=== PATIENT | female | born 1960 | race African-American/Black ===

== ENCOUNTER 2024-07-12 15:00 | Outpatient (RCR) | payer OTHER, SELFPAY ==
--- NOTE | 2024-04-20 12:25 | OPREHPOC ---
Outpatient Therapy Plan of Care This is a Multidisciplinary Plan of Care that may contain components documented by all disciplines (PT, OT, and ST.) PT Problem 1 PT Problem #1 Knowledge Deficit PT Goal 1 Goal / Goal Update 1. Patient will perform independent HEP Target Visit 3 PT Problem 2 PT Problem #2 Pain PT Goal 1 Goal / Goal Update 1. Patient will report no pelvic pain Target Visit 5 PT Problem 3 PT Problem #3 Impaired Functional ADLs PT Goal 1 Goal / Goal Update 1. Patient will report incontinence no more than 1 time a week Target Visit 5
--- NOTE | 2024-04-20 12:26 | PTOPEVAL1 ---
Assessment and note entered by Rosy Gregorio DPT Evaluation Information Assessment Status Evaluation Diagnosis m62.89 ICD-10 Condition Codes (PT) Urge incontinence N39.41,Stress incontinence N39.3 Subjective Information States she sometimes feels pins in her right labia and pubic bone. Pain depends on what position she is in, also describes a pulling sensation in her abdomen. Highest 6/10. At one time fell and landed on a chair in a way that seemed to contribute to her symptoms. Voids 8-10 times a day and none at night. Can hold urge 5-15 minutes, sometimes less depending on the situation . Reports incontinence daily and uses towels instead of a pad. Sometimes incontinence will be the full amount of her bladder, but states it is not consistent. Denies pain with urination. BM at least most days of the week, sometimes more often. Feels a sense of fecal urgency. Denies history of pelvic pain. Pt has been 3 times, delivered 1 time via C- section. Diet: drinks mainly water, 8 ounces of tea with dinner. Tries to be sure to eat green leafy vegetables, often skips breakfast. Small snacks. Minimal dairy. Patient goal: see what is going on with my muscles , reduce incontinence History of breast cancer x 2. Attributes some of her current issues to the cancer treatments. Ectopic and surgery 25 years ago. Reported Pain Level Pain Score 0: Self Report Assessment PT Clinical Summary The patient is presenting to skilled therapy with a history of pelvic pain and significant urinary incontinence. She presents with decreased core strength. Pelvic floor assessment to be completed next visit due to time constraints and patient request. She will benefit from therapy to address her muscular impairments in order to reduce pain and incontinence and improve overall function. Plan of Care Interventions Electrical Stimulation,Hot Pack/Cold Pack,Manual Therapy,Neuro Re-education,Patient/Caregiver Education,Therapeutic Activities,Therapeutic Exercise PT Services Indicated Yes Treatment Frequency and 1 time a week for 5 visits Duration These treatments will address the objective and functional deficits as defined above. The patient will be advanced safely and appropriately in order for the patient to progress towards his/her prior level of function. Additional exercises will be introduced and as well as a comprehensive home exercise program upon discharge, if needed, ?to ensure carryover of functional gains achieved in the clinic. This treatment plan has been reviewed and agreement upon by the patient.
--- NOTE | 2024-04-24 11:49 | PCPTNOTE ---
Patient called to cancel 04/24/24 due to car trouble. Plans to call to r/s.
--- NOTE | 2024-05-25 10:42 | OPREHPOC ---
Outpatient Therapy Plan of Care This is a Multidisciplinary Plan of Care that may contain components documented by all disciplines (PT, OT, and ST.) PT Problem 1 PT Problem #1 Knowledge Deficit PT Goal 1 Goal / Goal Update 1. Patient will perform independent HEP Target Visit 3 Progress Met PT Problem 2 PT Problem #2 Pain PT Goal 1 Goal / Goal Update 1. Patient will report no pelvic pain update 05/25/24 1. 4/10 highest Target Visit 9 Progress Partially Met PT Problem 3 PT Problem #3 Impaired Functional ADLs PT Goal 1 Goal / Goal Update 1. Patient will report incontinence no more than 1 time a week update 05/25/24 1. daily but less often/less volume Target Visit 5 Progress Partially Met
--- NOTE | 2024-05-25 10:42 | PTOPPROG ---
Assessment and note entered by Rosy Gregorio DPT Evaluation Information Assessment Status Progress Diagnosis m62.89 ICD-10 Condition Codes (PT) Urge incontinence N39.41,Stress incontinence N39.3 Subjective Information Pt reports she feels overall better since starting therapy. Volume of incontinence has decreased and is more manageable. Can hold urge to void up to 10-15 minutes on the high end, sometimes less. Using smaller towels and less of them (uses in place of pads). Highest pain over the last week 10. Feels she will benefit from continuing therapy . Assessment PT Clinical Summary The patient has made good progress in therapy. She reports decreased pain overall to 4/10 highest and reports decreased volume and frequency of incontinence. She demonstrates improved hip and core strength as well as improved pelvic floor strength and endurance. Due to her progress but continued pain and incontinence she will benefit from further therapy to return to full function. Plan of Care Interventions Electrical Stimulation,Hot Pack/Cold Pack,Manual Therapy,Neuro Re-education,Patient/Caregiver Education,Therapeutic Activities,Therapeutic Exercise PT Services Indicated Yes Treatment Frequency and 1 time a week for 4 visits Duration These treatments will address the objective and functional deficits as defined above. The patient will be advanced safely and appropriately in order for the patient to progress towards his/her prior level of function. Additional exercises will be introduced and as well as a comprehensive home exercise program upon discharge, if needed, ?to ensure carryover of functional gains achieved in the clinic. This treatment plan has been reviewed and agreement upon by the patient.
--- NOTE | 2024-06-22 09:07 | PCPTNOTE ---
Patient cancelled appointment 06/21/24 due to conflicting appointment
--- NOTE | 2024-07-12 15:40 | OPREHPOC ---
Outpatient Therapy Plan of Care This is a Multidisciplinary Plan of Care that may contain components documented by all disciplines (PT, OT, and ST.) PT Problem 1 PT Problem #1 Knowledge Deficit PT Goal 1 Goal / Goal Update 1. Patient will perform independent HEP Target Visit 3 Progress Met PT Problem 2 PT Problem #2 Pain PT Goal 1 Goal / Goal Update 1. Patient will report no pelvic pain update 05/25/24 1. 4/10 highest update 07/12/24 1. 1/10 highest Target Visit 9 Progress Partially Met PT Problem 3 PT Problem #3 Impaired Functional ADLs PT Goal 1 Goal / Goal Update 1. Patient will report incontinence no more than 1 time a week update 05/25/24 1. daily but less often/less volume update 07/12/24 1. 2 times per week Target Visit 9 Progress Partially Met
--- NOTE | 2024-07-12 15:40 | PTOPDC ---
Assessment and note entered by Rosy Gregorio DPT Evaluation Information Assessment Status Discharge Diagnosis m62.89 ICD-10 Condition Codes (PT) Urge incontinence N39.41,Stress incontinence N39.3 Subjective Information Reports her anterior pain has joined with the black hole pain in her back which is a good thing . States she is no longer fearful of walking around the house without a towel for incontinence . Still will get incontinence if she waits too long to void and is not holding as long as she was at last re-evaluation. Trying to work on urge suppression strategies. Incontinence two times in the last week. Highest pain over the last week . Reported Pain Level Pain Score 0: Self Report Assessment PT Clinical Summary The patient has continued to make progress in therapy and reports greatly decreased pain overall and decreased frequency of incontinence to 2 times in the last week. She demonstrates the same muscle strength as last re-evaluation. Due to this , plan for discharge at this time. She has been educated to continue HEP independently and to follow up with MD and/or PT as needed. Plan of Care PT Services Indicated No
== END 2024-07-13 10:45 | disposition home or self-care (01) ==
LOC: ANHPT 15:00
PROVIDERS: PCP Internal Medicine; Visit Provider Urology
DX: M62.89 Other specified disorders of muscle (principal)
CPT/HCPCS: 97112; 97140; 97162; 97530

== ENCOUNTER 2025-03-01 14:45 | Outpatient (RCR) | payer MEDICARE, SELFPAY ==
--- NOTE | 2025-02-22 13:51 | OPREHPOC ---
Outpatient Therapy Plan of Care This is a Multidisciplinary Plan of Care that may contain components documented by all disciplines (PT, OT, and ST.) PT Problem 1 PT Problem #1 Knowledge Deficit PT Goal 1 Goal / Goal Update 1. Patient will perform independent HEP 2. Patient will verbalize urge suppression strategies Target Visit 2 PT Problem 2 PT Problem #2 Impaired Strength PT Goal 1 Goal / Goal Update 1. Patient will demonstrate 4/5 pelvic floor strength to reduce incontinence 2. Patient will demonstrate 10 second pelvic floor endurance to reduce incontinence Target Visit 3 PT Problem 3 PT Problem #3 Impaired Functional ADLs PT Goal 1 Goal / Goal Update 1. Patient able to hold urge to void at least 15 minutes 2. Patient will report incontinence no more than 1 time a week Target Visit 3
--- NOTE | 2025-02-22 13:51 | PTOPEVAL1 ---
Assessment and note entered by Rosy Gregorio DPT Evaluation Information Assessment Status Evaluation ICD-10 Condition Codes (PT) Weakness R53.1,Urge incontinence N39.41,Stress incontinence N39.3 Subjective Information Pt reports she is getting incontinence frequently throughout the day. Voiding 7 times a day and incontinence another 7 times a day. Just started taking something for OAB and states her dosage is going to be increased. States she is wearing adult diapers again. No pain with urination. Reports a lot of urgency and can only hold for a minute or two. BM most days or every other day. Denies pelvic pain. Pt has been 2 times, 1 delivery which was . No history of b/b issues or other [employer] issues. Patient goal: get some exercises for the meantime. Pt states she is starting a new job after next week and will be unable to come to appointments for awhile. Reported Pain Level Pain Score 0: Self Report Assessment PT Clinical Summary The patient is presenting to skilled therapy with a history of mixed urinary incontinence and urinary urgency. She presents with decreased pelvic floor strength and endurance as well as decreased overall hip and abdominal strength which are contributing to her incontinence. She also demonstrates need for education in urge suppression strategies. She will benefit from skilled therapy to address her impairments in order to reduce urgency and incontinence and restore full function. Plan of Care Interventions Manual Therapy,Neuro Re-education,Patient/ Caregiver Education,Therapeutic Activities, Therapeutic Exercise PT Services Indicated Yes Treatment Frequency and 1 time a week for 2-3 visits Duration These treatments will address the objective and functional deficits as defined above. The patient will be advanced safely and appropriately in order for the patient to progress towards his/her prior level of function. Additional exercises will be introduced and as well as a comprehensive home exercise program upon discharge, if needed, ?to ensure carryover of functional gains achieved in the clinic. This treatment plan has been reviewed and agreement upon by the patient.
--- NOTE | 2025-05-07 14:52 | PTOPDC ---
Assessment and note entered by Rosy Gregorio DPT Evaluation Information Assessment Status Discharge - Pt Not Present ICD-10 Condition Codes (PT) Weakness R53.1,Urge incontinence N39.41,Stress incontinence N39.3 Subjective Information - Assessment PT Clinical Summary Patient case has been discharged due to her work schedule. Plan of Care PT Services Indicated No
== END 2025-05-08 09:25 | disposition home or self-care (01) ==
LOC: ANHPT 14:45
PROVIDERS: PCP Internal Medicine; Visit Provider Urology
DX: N39.41 Urge incontinence (principal); M62.89 Other specified disorders of muscle
CPT/HCPCS: 97112; 97161; 97530